=== PATIENT | female | born 1990 | race Caucasian/White ===

== ENCOUNTER 2019-04-06 18:52 | Emergency (ER) | payer BC ==
[2019-04-06 19:10] VITALS: BP 107/64
--- NOTE | 2019-04-06 19:26 | UC ---
Back Pain HPI - HPI Summary HPI Summary: 29-year-old woman comes in with a chief complaint of back pain. She's had some pain in her upper lumbar back for several days and yesterday morning when she stood up quickly she had a sudden onset of severe pain in the upper lumbar area just to the left of center. Pain does radiate around into the abdomen. Pain does not go up and down the back is no weakness or numbness. Pain is worse with twisting turning bending. She's been taking ibuprofen 800 mg by mouth 3 times a day which does help pain for approximately 3 hours. She did try Flexeril 5 mg which only helped minimally. - History of Current Complaint Chief Complaint: UCBackPain Stated Complaint: BACK PAIN Time Seen by Provider: 04/06/19 19:14 Hx Last Menstrual Period: 04/01/19 Pain Intensity: 6 - Allergies/Home Medications Allergies/Adverse Reactions: Allergies Allergy/AdvReac Type Severity Reaction Status Date / Time amoxicillin Allergy Rash Verified 04/06/19 19:04 Home Medications: Home Medications Cyclobenzaprine TAB* [Flexeril 10 MG TAB*] 5 mg PO Q8H PRN 04/06/19 [History Confirmed 04/06/19] Ibuprofen TAB* [Motrin TAB* 800 MG] 800 mg PO Q6H PRN 04/06/19 [History Confirmed 04/06/19] PMH/Surg Hx/FS Hx/Imm Hx Previously Healthy: Yes - Surgical History Surgical History: Yes Surgery Procedure, Year, and Place: T&A. C-Sect x 2 - Family History Known Family History: Positive: Non-Contributory - Social History Alcohol Use: None Substance Use Type: None Smoking Status (MU): Former Smoker When Did the Patient Quit Smoking/Using Tobacco: 2010 Review of Systems All Other Systems Reviewed And Are Negative: Yes Constitutional: Positive: Negative Skin: Positive: Negative Eyes: Positive: Negative ENT: Positive: Negative Respiratory: Positive: Negative Cardiovascular: Positive: Negative Gastrointestinal: Positive: Negative Motor: Positive: Negative Neurovascular: Positive: Negative Musculoskeletal: Positive: Other: - SEE HPI Neurological: Positive: Negative Psychological: Positive: Negative Is Patient Immunocompromised?: No Physical Exam Triage Information Reviewed: Yes Appearance: Well-Appearing, Well-Nourished, Pain Distress - MILD WITH BACK ROM Vital Signs: Initial Vital Signs Temp 97.5 F 04/06/19 19:06 Pulse 68 08/15/19 19:06 Resp 16 04/06/19 19:06 BP 107/64 04/06/19 19:06 Pulse Ox 100 04/06/19 19:06 Vital Signs Reviewed: Yes Eye Exam: Normal Eyes: Positive: Conjunctiva Clear Neck: Positive: Supple Respiratory: Positive: No respiratory distress Musculoskeletal: Positive: Other: - Tender to palpation upper lumbar spine and to just to the left of the upper lumbar spine. Neurological: Positive: Alert Psychological: Positive: Age Appropriate Behavior Skin Exam: Normal Back Pain Course/Dx - Course Course Of Treatment: Patient will continue the ibuprofen 800 mg by mouth 3 times a day. Also can increase the dose of Flexeril from 5-10 mg every 8 hours as needed. Is also currently get lidocaine patch. We discussed stretches. Follow-up with primary care doctor or sports medicine if not completely improved. Get reevaluated sooner if worse. - Differential Dx/Diagnosis Provider Diagnosis: Low back pain Discharge - Sign-Out/Discharge Documenting (check all that apply): Patient Departure All imaging exams completed and their final reports reviewed: No Studies - Discharge Plan Condition: Stable Disposition: HOME Patient Education Materials: Acute Low Back Pain (ED), Lower Back Exercises (ED ) Referrals: Margarito Graff [Primary Care Provider] - Additional Instructions: FOLLOW UP WITH YOU PRIMARY CARE DOCTOR OR SPORTS MEDICINE IF NOT COMPLETELY IMPROVED. USE A LIDOCAINE PATCH IF HELPFUL. CONTINUE THE IBUPROFEN DIRECTED. USE FLEXERIL 10MG IN THE EVENING. TRY BACK STRETCHING EXERCISES. GET REEVALUATED SOONER IF WORSE; WEAKNESS, NUMBNESS, PAIN, DIFFICULTY CONTROLLING BOWEL OR BLADDER OR ANY QUESTIONS OR CONCERNS. - Billing Disposition and Condition Condition: STABLE Disposition: Home
== END 2019-04-06 19:33 | disposition home or self-care (01) ==
LOC: UCCORT 18:52
DX: M54.5 Low back pain (principal); Z87.891 Personal history of nicotine dependence
CPT/HCPCS: 99211; G0463

== ENCOUNTER 2022-08-05 05:31 | Inpatient (IN) ==
[~2022-08-05 05:31] MED LIST: Naloxone 0.4 mg VIAL 0.4 mg/ml 1 ml VIAL IV PRN; Ondansetron 4 mg VIAL 2 MG/ML 2 ml VIAL IV PRN; fentaNYL 100 mcg/2 ml 50 MCG/ML VIAL IV PRN; oxyCODONE/Acetamin 5/325 mg TAB PO PRN
[2022-08-05] MEDS ORDERED: Buffered Lidocaine 1% SYRIN 1 ml INTRADERM ONE ×2 (06:00)
[2022-08-05] MEDS ORDERED: Sodium Citrate/Citric Acid LIQ 15 ML UDC PO ONE (06:00)
[2022-08-05] MEDS ORDERED: Lactated Ringers 1000 ml BAG 1,000 ML IV SCH ×3 (06:00→12:00)
[2022-08-05 06:25] LABS: ABS Eosinophils 0.1 10^3/ul (0-0.6); ABS Lymphocytes 2.5 10^3/ul (1.0-4.8); ABS Monocytes 0.7 10^3/ul (0-0.8); ABS Neutrophils 5.6 10^3/ul (1.5-7.7); Hematocrit 34 % (35-47); Hemoglobin 11.3 g/dL (12.0-16.0); Lymphocyte % 28.1 %; Mean Corpuscular HGB Conc 33 g/dL (31-36); Mean Corpuscular Hemoglobin 26 pg (27-31); Mean Corpuscular Volume 78 fL (80-97); Mean Platelet Volume 7.9 fL (7.4-10.4); Platelet Count 212 10^3/uL (150-450); Red Blood Count 4.33 10^6 /uL (3.70-4.87); Red Cell Distribution Width 13 % (10-15)
[2022-08-05] MEDS ORDERED: ceFAZolin 2 GM/50 ML BAG IV ONE (07:00)
[2022-08-05 07:46] LABS: Urine Benzodiazepine Screen None Detected (None Detect); Urine Cannabinoids Screen None Detected (None Detect); Urine Opiates Screen None Detected (None Detect)
[2022-08-05 08:02] LABS: Calcium 8.5 mg/dL (8.6-10.3); eGFR CKD-EPI 124.8 (>60)
[2022-08-05] MEDS ORDERED: Oxytocin 10 UNITS/ML 1 ML VIAL ONE (08:55)
[2022-08-05] MEDS ORDERED: Scopolamine 1 mg/72hr PATCH ONE (08:55)
[2022-08-05] MEDS ORDERED: Phenylephrine 40 mcg/mL 10mL (400mcg) SYRINGE ONE ×2 (08:55→09:49)
[2022-08-05] MEDS ORDERED: Morphine PF AMP (0.5MG/ML) 5 MG/10 ML AMP ONE (08:56)
[2022-08-05] MEDS ORDERED: Acetaminophen IV 1 GM/100ML 1,000 MG/100 ML BAG IV ONE (09:57)
[2022-08-05] MEDS ORDERED: Naloxone 0.4 mg VIAL 0.4 mg/ml 1 ml VIAL IV PRN (10:22)
[2022-08-05] MEDS ORDERED: Ondansetron 4 mg VIAL 2 MG/ML 2 ml VIAL IV PRN ×2 (10:22→10:23)
[2022-08-05] MEDS ORDERED: fentaNYL 100 mcg/2 ml 50 MCG/ML VIAL IV PRN (10:22)
[2022-08-05] MEDS ORDERED: Naloxone 0.4 mg VIAL 0.4 mg/ml 1 ml VIAL IV PUSH PRN (10:23)
[2022-08-05] MEDS ORDERED: Scopolamine 1 mg/72hr PATCH TRANSDERM PRN (10:23)
[2022-08-05] MEDS ORDERED: Acetaminophen IV 1 GM/100ML 1,000 MG/100 ML BAG IV PRN (10:23)
[2022-08-05] MEDS ORDERED: Metoclopramide 5 MG/ML VIAL (10 mg) IV PRN (10:23)
[2022-08-05] MEDS ORDERED: Glycerin ADULT 2.4 gm SUPP PR PRN (11:36)
[2022-08-05] MEDS ORDERED: Dibucaine 1% OINT 28.35 GM TUBE PR PRN (11:36)
[2022-08-05] MEDS ORDERED: Witch Hazel PAD JAR TOPICAL PRN (11:36)
[2022-08-05 17:50] LABS: Urine Appearance Clear; Urine Bilirubin Negative (Negative); Urine Blood Trace (Intact) (Negative); Urine Color Yellow; Urine Glucose Negative (Negative); Urine Ketones Trace (Negative); Urine Nitrite Negative (Negative); Urine Protein Negative (Negative); Urine Specific Gravity 1.015 (1.005-1.030); Urine Urobilinogen 0.2 (Negative) (Negative)
[2022-08-05 17:56] LABS: Urine Bacteria Absent (Absent); Urine Red Blood Cell 2+(6-10/hpf) (Absent); Urine Squamous Epithelial Cell Present (Absent); Urine White Blood Cell Trace(0-5/hpf) (Absent)
[2022-08-06 06:53] LABS: ABS Eosinophils 0.1 10^3/ul (0-0.6); ABS Lymphocytes 1.7 10^3/ul (1.0-4.8); ABS Monocytes 0.8 10^3/ul (0-0.8); ABS Neutrophils 6.4 10^3/ul (1.5-7.7); Eosinophil % 1.2 %; Hematocrit 32 % (35-47); Hemoglobin 10.6 g/dL (12.0-16.0); Lymphocyte % 19.1 %; Mean Corpuscular HGB Conc 33 g/dL (31-36); Mean Corpuscular Hemoglobin 27 pg (27-31); Mean Corpuscular Volume 80 fL (80-97); Mean Platelet Volume 7.7 fL (7.4-10.4); Platelet Count 160 10^3/uL (150-450); Red Blood Count 3.93 10^6 /uL (3.70-4.87); Red Cell Distribution Width 13 % (10-15); White Blood Count 9.1 10^3/uL (3.5-10.8)
[2022-08-07 12:35] VITALS: BP 133/72
== END 2022-08-07 14:30 | disposition home or self-care (01) | DRG 540 ==
LOC: MCHOB 05:31
PROVIDERS: ADMIT Obstetrics & Gynecology; ATTEND Obstetrics & Gynecology